=== PATIENT | male | born 1960 | race Hispanic/Latino ===

== ENCOUNTER → 2021-06-24 | Outpatient (CLI) | payer OTHER ==
[~2021-06-24] MED LIST: AEC81 PO; FENO145T26 PO; LISI5TAB21 PO; SIMV-43 PO
== END | disposition home or self-care (01) ==
LOC: OIH 13:18
PROVIDERS: ATTEND Anesthesiology Pain Medicine
DX: Z13.6 Encounter for screening for cardiovascular disorders (principal); I25.10 Atherosclerotic heart disease of native coronary artery without angina pectoris; I51.5 Myocardial degeneration
CPT/HCPCS: 75571